=== PATIENT | male | born 1985 | race Caucasian/White ===

== ENCOUNTER 2022-05-20 03:54 | Emergency (ER) | payer OTHER ==
[~2022-05-20] VITALS: Ht 172.7 cm; Wt 96.0 kg
[2022-05-20] MEDS ORDERED: DEXAMETHASONE 4MG TABLET PO ONE (04:30)
[2022-05-20] MEDS ORDERED: FAMOTIDINE 20MG TABLET PO ONE (04:30)
[2022-05-20] MEDS ORDERED: DIPHENHYDRAMINE 25MG CAPSULE PO ONE (04:30)
[2022-05-20] MEDS ORDERED: P20 MT (05:25)
[2022-05-20 05:50] VITALS: BP 134/74
== END 2022-05-20 05:52 | disposition home or self-care (01) ==
LOC: ER 03:54
DX: T78.2XXA Anaphylactic shock, unspecified, initial encounter (principal); Z88.0 Allergy status to penicillin
CPT/HCPCS: 99284; J8540; Q0163; Z7610